=== PATIENT | male | born 1985 | race African-American/Black ===

== ENCOUNTER 2025-04-20 12:38 | Inpatient (IN) | payer OTHER ==
[2025-04-20 13:30] VITALS: BMI 30.9
[2025-04-20] MEDS ORDERED: IBUPROFEN 400 MG TABLET (FP) PO PRN (17:32)
[2025-04-20] MEDS ORDERED: NICOTINE POLACRILEX 2 MG LOZENGE BC PRN (17:32)
[2025-04-20] MEDS ORDERED: MAG HYDROX/AL HYDROX/SIMETH 30 ML UNIT-DOSE CUP PO PRN (17:32)
[2025-04-20] MEDS ORDERED: BENZOCAINE/MENTHOL (CHLORASEPTIC ) LOZENGE MM PRN (17:32)
[2025-04-20] MEDS ORDERED: ACETAMINOPHEN 325 MG TABLET (FP) PO PRN (17:32)
[2025-04-20] MEDS ORDERED: LOPERAMIDE HCL 2 MG CAPSULE PO PRN (17:32)
[2025-04-20] MEDS ORDERED: IBUPROFEN 600 MG TABLET (FP) PO PRN (17:32)
[2025-04-20] MEDS ORDERED: NALOXONE (NARCAN) HCL 4 MG/0.1 ML SPRAY NS PRN (17:32)
[2025-04-20] MEDS ORDERED: BENZONATATE 200 MG CAPSULE PO PRN (17:32)
[2025-04-20] MEDS ORDERED: POLYETHYLENE GLYCOL (HEALTHYLAX) 3350 17 GM PACKET PO PRN (17:32)
[2025-04-20] MEDS ORDERED: guaiFENesin 600 MG TABLET.ER (FP) PO PRN (17:32)
[2025-04-20] MEDS ORDERED: hydrOXYzine PAMOATE 25 MG CAPSULE (FP) PO PRN (17:32)
[2025-04-20] MEDS ORDERED: MAGNESIUM HYDROX 2400MG/30ML ORAL SUSPENSION 30 ML CUP PO PRN (17:32)
[2025-04-20] MEDS ORDERED: TUBERCULIN PPD 5 TU/0.1ML SYRINGE (IN PATIENT USE ONLY) ID ONE (21:33)
[2025-04-20] MEDS: MELATONIN 5 MG TABLETS PO SCH (21:51)
[2025-04-20] MEDS: THIAMINE 100 MG TABLET PO SCH (21:51)
[2025-04-21 06:18] VITALS: RESP 16
[2025-04-21] MEDS ORDERED: TUBERCULIN PPD 5 TU/0.1ML VIAL ID ONE (10:16)
[2025-04-21] MEDS: PRENATAL VITAMINS W/ FOLIC ACID TABLET (FP) PO SCH (10:39)
[2025-04-21] MEDS: TUBERCULIN PPD 5 TU/0.1ML SYRINGE (IN PATIENT USE ONLY) ID ONE (10:39)
[2025-04-21 11:34] LABS: URINE COLOR YELLOW
[2025-04-21 11:35] LABS: URINE APPEARANCE CLOUDY; URINE BILIRUBIN NEGATIVE (NEGATIVE); URINE GLUCOSE (UA) NEGATIVE (NEGATIVE); URINE KETONE NEGATIVE (NEGATIVE); URINE LEUK ESTERASE 3+ (NEGATIVE); URINE NITRITE NEGATIVE (NEGATIVE); URINE PROTEIN NEGATIVE (NEGATIVE); URINE UROBILINOGEN 0.2 mg/dL (0.2-1.0)
[2025-04-21 11:53] LABS: URINE RBC 0 /uL (0-23.9)
[2025-04-21 11:54] LABS: HYALINE CASTS 0 /uL (0-3.1); URINE WBC 50-100 /uL (0-25.8)
[2025-04-21 11:55] LABS: URINE BACTERIA 0 /uL (0-1359); URINE CRYSTALS 0 /hpf; YEAST 0 (NEGATIVE)
[2025-04-21 12:50] LABS: MCHC 33.4 g/dl (32.3-36.5); MEAN CELL VOLUME 88.8 fl (79.0-92.2); MEAN PLT VOLUME 11.4 fl (9.4-12.4); RDW 14.4 % (12.0-15.6)
[2025-04-21 14:30] LABS: SYPHILIS W/ RPR CONF NON-REACTIVE (NONREACTIVE)
[2025-04-21 14:58] LABS: HCV DIAGNOSTIC IN-HOUSE W/RFLX NON-REACTIVE (NONREACTIVE)
[2025-04-21 14:59] LABS: ALK PHOS 49.0 U/L (45-117); CO2 28.0 mmol/L (21-32); CREATININE 0.8 mg/dL (0.55-1.3); GLUCOSE,RANDOM 102.0 mg/dL (74-106); SGOT/AST 18.0 U/L (15-37); SGPT/ALT 20.0 U/L (13-61); TOT PROT 6.5 g/dl (6.4-8.2)
[2025-04-22] MEDS: NICOTINE POLACRILEX 2 MG GUM BUC PRN (09:46)
[2025-04-22] MEDS: NICOTINE 14 MG/24 HOURS TOPICAL PATCH TD SCH (12:48)
[2025-04-23 06:55] VITALS: PULSE 61
[2025-04-24 05:21] VITALS: BP 136/65; TEMP 97.3
== END 2025-04-24 09:52 | disposition left against medical advice (07) | DRG 770 ==
LOC: YASAS 12:38 → Y3W 18:03
PROVIDERS: ADMIT Neuromusculoskeletal Medicine & OMM; ATTEND Psychiatry & Neurology Pain Medicine
PROC: HZ42ZZZ Group Counseling for Substance Abuse Treatment, Cognitive-Behavioral (ICD-10-PCS; principal; 2025-04-20)
DX: F15.20 Other stimulant dependence, uncomplicated (principal); F12.20 Cannabis dependence, uncomplicated; F17.210 Nicotine dependence, cigarettes, uncomplicated; F41.9 Anxiety disorder, unspecified
CPT/HCPCS: 36415; 80053; 80305; 80307; 81003; 85027; 86780; 86803; 87811; 93005; 93010